=== PATIENT | male | born 1975 | race Caucasian/White ===

== ENCOUNTER 2018-01-12 21:35 | Emergency (ER) | payer OTHER ==
[~2018-01-12] VITALS: Ht 177.8 cm; Wt 90.0 kg
[2018-01-12 21:43] VITALS: BP 147/78; PULSE 62; RESP 18; TEMP 98; O2SAT 96
[2018-01-12] MEDS ORDERED: DEXAMETHASONE SOD PHOS 20 MG/5 ML VIAL IM ONE (22:15)
[2018-01-12] MEDS ORDERED: oxyCODONE/ACETAMINOPHEN 5 MG/325 MG TAB PO ONE (22:15)
[2018-01-12] MEDS ORDERED: KETOROLAC TROMETHAMINE 60 MG/2 ML (IM) VIAL IM ONE (22:15)
--- NOTE | 2018-01-12 22:38 | RADRPT ---
EXAM DATE/TIME: 01/12/2018 22:26 [place] COMPARISON: No previous studies available for comparison. INDICATIONS : Back pain. MEDICAL HISTORY : None. SURGICAL HISTORY : None. ENCOUNTER: Initial ACUITY: 1 week PAIN SCORE: 10/10 LOCATION: Lumbar FINDINGS: Two view examination was performed. There are five non-rib bearing vertebral bodies. The vertebral bodies are in normal alignment without evidence of subluxation or scoliosis. The disc spaces are oral ntained. The pedicles are intact. Bony mineralization is normal. No fracture is identified. CONCLUSION: 1. Unremarkable radiographs of the lumbar spine. Christ Borrego MD on January 12, 2018 at 22:35 Board Certified Radiologist. This report was verified electronically.
[2018-01-12] MEDS ORDERED: ATOR20TA15 PO (22:40)
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
[2018-01-12] MEDS ORDERED: DIAZ5 PO (22:57)
[2018-01-12] MEDS ORDERED: PERC5TAB12 PO (22:57)
[2018-01-12] MEDS ORDERED: IBUP-232 PO (22:57)
[2018-01-12 23:53] VITALS: BP 128/73
== END 2018-01-12 23:56 | disposition home or self-care (01) ==
LOC: PHED 21:35
DX: S39.012A Strain of muscle, fascia and tendon of lower back, initial encounter (principal); X50.9XXA Other and unspecified overexertion or strenuous movements or postures, initial encounter; E78.00 Pure hypercholesterolemia, unspecified
CPT/HCPCS: 72100; 96372; 99283; J1100; J1885